=== PATIENT | female | born 1970 | race Caucasian/White ===

== ENCOUNTER 2016-04-15 04:32 | Emergency (ER) | payer OTHER ==
[~2016-04-15] VITALS: Ht 157.5 cm; Wt 54.5 kg
[2016-04-15 05:17] LABS: BASOPHILS % (AUTO) 0.1 % (0.0-2.0); EOSINOPHILS % (AUTO) 0.1 % (1.0-6.0); HEMATOCRIT 30.8 % (36-46); HEMOGLOBIN 9.9 g/dL (12.0-16.0); MEAN CORPUSCULAR HEMOGLOBIN 35.2 pg (26.0-34.0); MEAN CORPUSCULAR HGB CONC 32.3 G/dL (31.0-37.0); MEAN CORPUSCULAR VOLUME 109 fL (80-100); MONOCYTES # (AUTO) 0.3 K/uL (0.1-1.0); MONOCYTES % (AUTO) 2.9 % (2.0-9.0); NEUTROPHILS # (AUTO) 9.4 K/uL (1.8-7.7); PLATELET COUNT (AUTO) 115 K/uL (150-450); RED BLOOD CELL COUNT(AUTO) 2.83 MIL/uL (4.00-5.20); RED CELL DISTRIBUTION WIDTH 17.7 % (11.5-14.5); WHITE BLOOD COUNT (AUTO) 10.7 K/uL (4.5-11.0)
[2016-04-15 05:18] LABS: NEUTROPHILS % (AUTO) 87.9 % (40.0-70.0)
[2016-04-15 05:24] LABS: ANION GAP 20 mmol/L (8-16); CALCIUM, TOTAL 8.1 mg/dL (8.8-10.5); CARBON DIOXIDE 20 mmol/L (22-29); CHLORIDE 99 mmol/L (98-107); CREATININE 1.15 mg/dL (0.60-1.30); GLOMERULAR FILTR. RATE CALC 51 mL/min (>60); POTASSIUM 3.1 mmol/L (3.5-5.1); SODIUM SERUM 139 mmol/L (136-145); UREA NITROGEN, BLOOD 11 mg/dL (7-18)
[2016-04-15 05:28] LABS: ALANINE AMINOTRANSFERASE 39 U/L (12-78); ASPARTATE AMINOTRANSFERASE 130 U/L (15-37); BILIRUBIN,TOTAL 1.4 mg/dL (0.1-1.0); TOTAL PROTEIN, SERUM 8.1 g/dL (6.4-8.2)
[2016-04-15 05:48] LABS: RBC MORPHOLOGY COMMENT ABNORMAL RBC MORPH
[2016-04-15] MEDS ORDERED: POTASSIUM CHLORIDE 10% 40 MEQ/30 ML LIQUID UDCUP PO ONE (06:00)
[2016-04-15 06:01] VITALS: BP 140/87
== END 2016-04-15 06:10 | disposition home or self-care (01) ==
LOC: EMS 04:33
DX: F69 Unspecified disorder of adult personality and behavior (principal); E87.6 Hypokalemia; F15.10 Other stimulant abuse, uncomplicated; F17.210 Nicotine dependence, cigarettes, uncomplicated; F12.90 Cannabis use, unspecified, uncomplicated
CPT/HCPCS: 36415; 80053; 80307; 84703; 85025; 99284; G0480

== ENCOUNTER 2016-04-15 07:07 | Inpatient (IN) | payer MEDICAID, OTHER ==
[~2016-04-15] VITALS: Ht 160 cm; Wt 48.7 kg
[2016-04-15 07:41] LABS: GLUCOSE,POINT OF CARE 152 MG/DL (70-110)
[2016-04-15] MEDS ORDERED: ACETAMINOPHEN 325 MG TABLET PO ONE (07:45)
[2016-04-15 08:57] LABS: APPEARANCE,URINE CLEAR (CLEAR); GLUCOSE, URINE (UA) NEGATIVE (NEGATIVE); KETONES,URINE 15 mg/dL (NEGATIVE); LEUKOCYTE ESTERASE ,URINE NEGATIVE (NEGATIVE); OCCULT BLOOD,URINE SMALL (NEGATIVE); PROTEIN,URINE POS 1+ (NEGATIVE)
[2016-04-15 09:06] LABS: SQUAMOUS EPITHELIAL CELL,UR Few /LPF (None Seen); WBC,URINE None Seen /HPF (0-5)
[2016-04-15] MEDS ORDERED: AZITHROMYCIN 250 MG TABLET PO ONE (09:15)
[2016-04-15] MEDS: HALOPERIDOL 5 MG TABLET PO PRN (12:35)
[2016-04-15] MEDS: LORazepam 2 MG TABLET PO PRN ×2 (12:35→22:10)
[2016-04-15 16:15] VITALS: BP 146/97
[2016-04-15] MEDS ORDERED: INFLUENZA VIRUS VACCINE QVS 2016-17 (3YR+)/PF 60 MCG/0.5 ML SYRINGE IM ONE (17:15)
[2016-04-15 21:03] VITALS: BP 120/81
[2016-04-16 03:00] VITALS: BP 118/82
[2016-04-16] MEDS: ACETAMINOPHEN 325 MG TABLET PO PRN ×2 (03:07→03:34)
[2016-04-16 10:30] VITALS: BP 110/80
[2016-04-16 16:31] VITALS: BP 125/80
[2016-04-16] MEDS ORDERED: PERMETHRIN 1% 60 ML LOTION TP ONE (16:45)
[2016-04-16] MEDS: ZOLPIDEM TARTRATE 10 MG TABLET PO PRN (21:12)
[2016-04-17] MEDS: ACETAMINOPHEN 325 MG TABLET PO PRN (03:47)
[2016-04-17] MEDS: LORazepam 2 MG TABLET PO PRN ×2 (03:47→17:02)
[2016-04-17] MEDS: HALOPERIDOL 5 MG TABLET PO PRN (03:47)
[2016-04-17] MEDS ORDERED: ACETAMINOPHEN 325 MG TABLET PO PRN (05:45)
[2016-04-17] MEDS ORDERED: POTASSIUM CHLORIDE 20 MEQ ER TABLET PO ONE (05:45)
[2016-04-17] MEDS: FERROUS SULFATE 325 MG EC TABLET PO SCH ×4 (07:33→21:00)
[2016-04-17] MEDS: BENZTROPINE MESYLATE 0.5 MG TABLET PO SCH ×2 (09:47→17:02)
[2016-04-17] MEDS: HALOPERIDOL 5 MG TABLET PO SCH ×2 (09:47→17:02)
[2016-04-17 16:25] VITALS: BP 112/96
[2016-04-17] MEDS: HALOPERIDOL 10 MG TABLET PO SCH (21:00)
[2016-04-18] MEDS: ZOLPIDEM TARTRATE 10 MG TABLET PO PRN (00:43)
[2016-04-18] MEDS: LORazepam 2 MG TABLET PO PRN ×4 (00:43→19:02)
[2016-04-18] MEDS ORDERED: PNEUMOCOCCAL VACCINE POLYVALENT 0.5 ML VIAL [PPSV23] IM ONE (02:00)
[2016-04-18 06:16] VITALS: BP 129/77
[2016-04-18] MEDS: FERROUS SULFATE 325 MG EC TABLET PO SCH ×4 (07:04→20:35)
[2016-04-18 08:02] VITALS: BP 135/82
[2016-04-18] MEDS: BENZTROPINE MESYLATE 0.5 MG TABLET PO SCH ×2 (10:24→17:05)
[2016-04-18] MEDS: IBUPROFEN 400 MG TABLET PO PRN (10:24)
[2016-04-18] MEDS: HALOPERIDOL 10 MG TABLET PO SCH ×2 (10:24→17:05)
[2016-04-18] MEDS: HALOPERIDOL 5 MG TABLET PO PRN (13:32)
[2016-04-18 16:42] VITALS: BP 110/67
[2016-04-19] MEDS: FERROUS SULFATE 325 MG EC TABLET PO SCH ×4 (06:39→20:26)
[2016-04-19 08:00] VITALS: BP 112/84
[2016-04-19] MEDS: HALOPERIDOL 10 MG TABLET PO SCH ×2 (09:41→16:23)
[2016-04-19] MEDS: LORazepam 2 MG TABLET PO PRN ×2 (09:42→17:16)
[2016-04-19] MEDS: BENZTROPINE MESYLATE 0.5 MG TABLET PO SCH ×2 (09:42→16:23)
[2016-04-19] MEDS: IBUPROFEN 400 MG TABLET PO PRN (09:42)
[2016-04-19 16:00] VITALS: BP 119/88
[2016-04-20 02:10] VITALS: BP 138/79
[2016-04-20] MEDS: LORazepam 2 MG TABLET PO PRN ×3 (02:12→23:53)
[2016-04-20] MEDS: ZOLPIDEM TARTRATE 10 MG TABLET PO PRN ×2 (02:12→23:52)
[2016-04-20] MEDS: FERROUS SULFATE 325 MG EC TABLET PO SCH ×4 (06:41→20:19)
[2016-04-20 08:07] VITALS: BP 128/78
[2016-04-20] MEDS: BENZTROPINE MESYLATE 0.5 MG TABLET PO SCH ×2 (08:58→16:36)
[2016-04-20] MEDS: HALOPERIDOL 10 MG TABLET PO SCH ×2 (08:58→16:36)
[2016-04-20 16:13] VITALS: BP 146/95
[2016-04-20] MEDS ORDERED: BENZ0.5T6 PO (20:31)
[2016-04-20] MEDS ORDERED: HALO10 PO (20:34)
[2016-04-21] MEDS: FERROUS SULFATE 325 MG EC TABLET PO SCH ×2 (07:00→12:00)
[2016-04-21 08:09] VITALS: BP 123/86
[2016-04-21] MEDS: HALOPERIDOL 10 MG TABLET PO SCH (08:29)
[2016-04-21] MEDS: BENZTROPINE MESYLATE 0.5 MG TABLET PO SCH (08:30)
[2016-04-21] MEDS ORDERED: FERR-89 PO (10:22)
== END 2016-04-21 12:30 | disposition home or self-care (01) | DRG 750 ==
LOC: EMS 07:09 → B3A 14:56 → 3EC 04-17 18:10
PROVIDERS: ADMIT Psychiatry & Neurology Psychiatry; ATTEND Psychiatry & Neurology Psychiatry
PROC: 3E0234Z Introduction of Serum, Toxoid and Vaccine into Muscle, Percutaneous Approach (ICD-10-PCS; principal; 2016-04-16)
DX: F20.0 Paranoid schizophrenia (principal); Z59.0 Homelessness; F19.20 Other psychoactive substance dependence, uncomplicated; E87.6 Hypokalemia; D64.9 Anemia, unspecified; I25.10 Atherosclerotic heart disease of native coronary artery without angina pectoris; F17.210 Nicotine dependence, cigarettes, uncomplicated; Z71.51 Drug abuse counseling and surveillance of drug abuser; Z23 Encounter for immunization
CPT/HCPCS: 82962; 84132; 90471; 99285

== ENCOUNTER 2016-11-01 23:26 | Emergency (ER) | payer MEDICAID, OTHER ==
[~2016-11-01] VITALS: Ht 165.1 cm; Wt 54.0 kg
[~2016-11-01 23:26] MED LIST: BENZ0.5T6 PO; FERR-89 PO; HALO10 PO
[2016-11-02 00:30] LABS: BASOPHILS % (AUTO) 0.8 % (0.0-2.0); EOSINOPHILS % (AUTO) 6.3 % (1.0-6.0); HEMATOCRIT 30.5 % (36-46); HEMOGLOBIN 10.2 g/dL (12.0-16.0); LYMPHOCYTES % (AUTO) 28.2 % (22.0-44.0); MEAN CORPUSCULAR HEMOGLOBIN 34.1 pg (26.0-34.0); MEAN CORPUSCULAR HGB CONC 33.5 G/dL (31.0-37.0); MEAN CORPUSCULAR VOLUME 102 fL (80-100); MONOCYTES # (AUTO) 0.7 K/uL (0.1-1.0); MONOCYTES % (AUTO) 10.3 % (2.0-9.0); NEUTROPHILS # (AUTO) 3.9 K/uL (1.8-7.7); NEUTROPHILS % (AUTO) 54.4 % (40.0-70.0); PLATELET COUNT (AUTO) 190 K/uL (150-450); RED CELL DISTRIBUTION WIDTH 18.9 % (11.5-14.5); WHITE BLOOD COUNT (AUTO) 7.2 K/uL (4.5-11.0)
[2016-11-02 00:37] LABS: ANION GAP 7 mmol/L (8-16); CALCIUM, TOTAL 8.2 mg/dL (8.8-10.5); CARBON DIOXIDE 29 mmol/L (22-29); CHLORIDE 104 mmol/L (98-107); CREATININE 0.82 mg/dL (0.60-1.30); GLOMERULAR FILTR. RATE CALC > 60 mL/min (>60); POTASSIUM 3.3 mmol/L (3.5-5.1); SODIUM SERUM 140 mmol/L (136-145); UREA NITROGEN, BLOOD 11 mg/dL (7-18)
[2016-11-02 00:43] LABS: ALANINE AMINOTRANSFERASE 31 U/L (12-78); ASPARTATE AMINOTRANSFERASE 77 U/L (15-37); BILIRUBIN,TOTAL 0.3 mg/dL (0.1-1.0); TOTAL PROTEIN, SERUM 6.8 g/dL (6.4-8.2)
[2016-11-02 01:21] LABS: RBC MORPHOLOGY COMMENT ABNORMAL RBC MORPH
[2016-11-02] MEDS ORDERED: POTASSIUM CHLORIDE 10% 40 MEQ/30 ML LIQUID UDCUP PO ONE (03:00)
[2016-11-02] MEDS ORDERED: MAG HYDROX/AL HYDROX/SIMETH ES 30 ML SUSPENSION UDCUP PO ONE (03:00)
[2016-11-02 03:38] VITALS: BP 133/87
== END 2016-11-02 03:42 | disposition home or self-care (01) ==
LOC: EMS 23:27
DX: K70.30 Alcoholic cirrhosis of liver without ascites (principal); E87.6 Hypokalemia; K86.1 Other chronic pancreatitis; F10.229 Alcohol dependence with intoxication, unspecified; I25.10 Atherosclerotic heart disease of native coronary artery without angina pectoris; F17.210 Nicotine dependence, cigarettes, uncomplicated; F12.90 Cannabis use, unspecified, uncomplicated; Y90.3 Blood alcohol level of 60-79 mg/100 ml
CPT/HCPCS: 36415; 80053; 84703; 85025; 99284; G0480

== ENCOUNTER 2018-09-23 16:35 | Inpatient (IN) | payer OTHER ==
[~2018-09-23] VITALS: Ht 160 cm; Wt 54.7 kg
[2018-09-23] MEDS ORDERED: OMEP20 PO (17:05)
[2018-09-23] MEDS ORDERED: PERID15L MM (17:05)
[2018-09-23] MEDS ORDERED: DIPH50 PO (17:05)
[2018-09-23] MEDS ORDERED: OLAN5TAB2 PO (17:05)
[2018-09-23] MEDS ORDERED: ACET-2247 PO (17:05)
[2018-09-23] MEDS ORDERED: METF-960 PO (17:05)
[2018-09-23] MEDS ORDERED: SERT50TA12 PO (17:05)
[2018-09-23] MEDS ORDERED: ATOR20TA86 PO (17:05)
[2018-09-23] MEDS ORDERED: NALT50TA6 PO (17:05)
[2018-09-23 17:16] LABS: GLUCOSE,POINT OF CARE 145 MG/DL (70-110)
[2018-09-23] MEDS ORDERED: SODIUM CHLORIDE 0.9% 1,000 ML IV ONE (18:45)
[2018-09-23 19:03] LABS: BASOPHILS % (AUTO) 1.3 % (0.0-2.0); EOSINOPHILS % (AUTO) 4.3 % (1.0-6.0); HEMOGLOBIN 7.7 g/dL (12.0-16.0); LYMPHOCYTES # (AUTO) 1.3 K/uL (1.0-4.8); LYMPHOCYTES % (AUTO) 18.9 % (22.0-44.0); MEAN CORPUSCULAR HEMOGLOBIN 29.5 pg (26.0-34.0); MEAN CORPUSCULAR HGB CONC 32.1 G/dL (31.0-37.0); MEAN CORPUSCULAR VOLUME 92 fL (80-100); MONOCYTES # (AUTO) 0.3 K/uL (0.1-1.0); MONOCYTES % (AUTO) 4.8 % (2.0-9.0); NEUTROPHILS % (AUTO) 70.7 % (40.0-70.0); PLATELET COUNT (AUTO) 242 K/uL (150-450); RED BLOOD CELL COUNT(AUTO) 2.61 MIL/uL (4.00-5.20); RED CELL DISTRIBUTION WIDTH 17.5 % (11.5-14.5)
[2018-09-23] MEDS ORDERED: ONDANSETRON HCL 4 MG/2 ML VIAL IVP ONE (19:15)
[2018-09-23 19:16] LABS: CALCIUM, TOTAL 9.4 mg/dL (8.8-10.5); CREATININE 1.2 mg/dL (0.60-1.30); POTASSIUM 4.1 mmol/L (3.5-5.1)
[2018-09-23] MEDS: ACETAMINOPHEN 500 MG TABLET PO ONE ×2 (19:21→19:37)
[2018-09-23 19:29] LABS: ALBUMIN 3.4 g/dL (3.4-5.0); BILIRUBIN,TOTAL 0.2 mg/dL (0.1-1.0); TOTAL PROTEIN, SERUM 7.3 g/dL (6.4-8.2)
[2018-09-23 19:42] LABS: INR 0.9 (0.9-1.1); PROTHROMBIN TIME 9.5 SEC (9.4-11.6)
[2018-09-23 19:45] LABS: AMPHET/METH SCREEN,URINE POSITIVE (NEGATIVE); BARBITURATE SCREEN, URINE NEGATIVE (NEGATIVE); BENZODIAZEPINES SCREEN,URINE NEGATIVE (NEGATIVE); CANNABINOID SCREEN,URINE POSITIVE (NEGATIVE); COCAINE SCREEN,URINE NEGATIVE (NEGATIVE); METHADONE SCREEN, URINE NEGATIVE (NEGATIVE); OPIATE SCREEN,URINE POSITIVE (NEGATIVE)
[2018-09-23 19:50] LABS: APPEARANCE,URINE CLEAR (CLEAR); BILIRUBIN,URINE NEGATIVE (NEGATIVE); GLUCOSE, URINE (UA) NEGATIVE (NEGATIVE); KETONES,URINE NEGATIVE (NEGATIVE); LEUKOCYTE ESTERASE ,URINE NEGATIVE (NEGATIVE); NITRATE,URINE NEGATIVE (NEGATIVE); OCCULT BLOOD,URINE TRACE (NEGATIVE); PHENCYCLIDINE SCREEN,URINE NEGATIVE (NEGATIVE); PROTEIN,URINE NEGATIVE (NEGATIVE); UROBILINOGEN,URINE 0.2 mg/dL (<=1.0)
[2018-09-23 20:02] LABS: BACTERIA,URINE None Seen /HPF (None Seen); RBC,URINE 0-2 /HPF (0-2); SQUAMOUS EPITHELIAL CELL,UR Few /LPF (None Seen); WBC,URINE 0-2 /HPF (0-5)
[2018-09-23] MEDS ORDERED: PANTOPRAZOLE SODIUM 80 MG in SODIUM CHLORIDE 0.9% 100 ML IV SCH (20:30)
[2018-09-23] MEDS ORDERED: MORPHINE SULFATE 2 MG/ML SYRINGE IVP ONE (20:30)
[2018-09-23] MEDS ORDERED: PANTOPRAZOLE SODIUM 40 MG/VIAL IVP ONE (20:30)
[2018-09-23] MEDS ORDERED: PEG 3350/NA SULF,BICARB,CL/KCL 4000 ML SOLUTION PO ONE (20:45)
[2018-09-23] MEDS ORDERED: ACETAMINOPHEN 325 MG TABLET PO PRN ×2 (21:15→22:00)
[2018-09-23] MEDS ORDERED: ONDANSETRON HCL 4 MG/2 ML VIAL IVP PRN (21:15)
[2018-09-23] MEDS ORDERED: LORazepam 2 MG/ML VIAL IVP ONE (21:30)
[2018-09-23] MEDS ORDERED: LORazepam 2 MG/ML VIAL IVP PRN (22:00)
[2018-09-23] MEDS ORDERED: POTASSIUM CHL 10 MEQ/WATER 50 ML IV PRN (22:00)
[2018-09-23] MEDS ORDERED: MAGNESIUM OXIDE 400 MG TABLET PO PRN (22:00)
[2018-09-23] MEDS ORDERED: MAGNESIUM SULFATE 4 GM/WATER 100 ML IV PRN (22:00)
[2018-09-23] MEDS ORDERED: MAGNESIUM SULFATE 2 GM/WATER 50 ML IV PRN (22:00)
[2018-09-23] MEDS ORDERED: POTASSIUM CHLORIDE 20 MEQ ER TABLET PO PRN (22:00)
[2018-09-23] MEDS ORDERED: DEXTROSE 50%-WATER 25 GM/50 ML SYRINGE IVP PRN (22:00)
[2018-09-23] MEDS: DEXTROSE 5%-0.45% SODIUM CHL 1,000 ML IV ONE ×2 (22:27→22:38)
[2018-09-23 23:15] VITALS: BP 111/72
[2018-09-24] VITALS (14 sets, daily range): BP systolic 95–154; BP diastolic 54–88
[2018-09-24] MEDS ORDERED: SODIUM CHLORIDE 0.9% 500 ML IV ONE (00:52)
[2018-09-24] MEDS ORDERED: PANTOPRAZOLE SODIUM 80 MG in SODIUM CHLORIDE 0.9% 100 ML IV SCH (08:00)
[2018-09-24] MEDS ORDERED: EPINEPHrine 1:10,000 [1 MG/10 ML] SYRINGE ONE (08:03)
[2018-09-24] MEDS ORDERED: SODIUM CHLORIDE 0.9% 1,000 ML IV ONE (08:03)
[2018-09-24] MEDS: MULTIVITAMINS WITH MINERALS, THERAPEUTIC TABLET PO SCH (10:10)
[2018-09-24 10:20] LABS: GLUCOMETER DEV NAME(LOC) 5S.1; GLUCOSE,POINT OF CARE 83 MG/DL (70-110)
[2018-09-24 11:36] LABS: GLUCOMETER DEV NAME(LOC) 5N.1; GLUCOSE,POINT OF CARE 127 MG/DL (70-110)
[2018-09-24 11:46] LABS: GLUCOMETER DEV NAME(LOC) 5N.2; GLUCOSE,POINT OF CARE 143 MG/DL (70-110)
[2018-09-24] MEDS ORDERED: PROPOFOL 1% 20 ML VIAL IVP ONE (12:00)
[2018-09-24] MEDS ORDERED: LIDOCAINE/PF 2% 5 ML VIAL INJ ONE (12:00)
[2018-09-24] MEDS: INSULIN LISPRO 100 UNITS/ML SQ PRN ×2 (12:12→21:07)
[2018-09-24 12:25] LABS: BASOPHILS % (AUTO) 0.9 % (0.0-2.0); EOSINOPHILS % (AUTO) 5.3 % (1.0-6.0); HEMATOCRIT 26.3 % (36-46); HEMOGLOBIN 8.4 g/dL (12.0-16.0); LYMPHOCYTES # (AUTO) 1.3 K/uL (1.0-4.8); LYMPHOCYTES % (AUTO) 27.8 % (22.0-44.0); MEAN CORPUSCULAR HEMOGLOBIN 28.3 pg (26.0-34.0); MEAN CORPUSCULAR HGB CONC 31.9 G/dL (31.0-37.0); MEAN CORPUSCULAR VOLUME 89 fL (80-100); MONOCYTES # (AUTO) 0.4 K/uL (0.1-1.0); MONOCYTES % (AUTO) 7.7 % (2.0-9.0); NEUTROPHILS # (AUTO) 2.8 K/uL (1.8-7.7); NEUTROPHILS % (AUTO) 58.3 % (40.0-70.0); PLATELET COUNT (AUTO) 217 K/uL (150-450); RED BLOOD CELL COUNT(AUTO) 2.96 MIL/uL (4.00-5.20); RED CELL DISTRIBUTION WIDTH 20.7 % (11.5-14.5)
[2018-09-24] MEDS ORDERED: MAGNESIUM SULFATE 4 GM/WATER 100 ML IV ONE (15:30)
[2018-09-24] MEDS ORDERED: SODIUM CHLORIDE 0.9% 100 ML ONE (16:50)
[2018-09-24 17:21] LABS: GLUCOMETER DEV NAME(LOC) 5S.1; GLUCOSE,POINT OF CARE 114 MG/DL (70-110)
[2018-09-25 00:34] VITALS: BP 133/74
[2018-09-25 03:40] LABS: GLUCOMETER DEV NAME(LOC) 5N.1; GLUCOSE,POINT OF CARE 146 MG/DL (70-110)
[2018-09-25 04:50] VITALS: BP 110/72
[2018-09-25] MEDS: INSULIN LISPRO 100 UNITS/ML SQ PRN ×2 (06:12→11:50)
[2018-09-25 07:05] LABS: BASOPHILS % (AUTO) 0.6 % (0.0-2.0); EOSINOPHILS % (AUTO) 9.3 % (1.0-6.0); HEMATOCRIT 25.8 % (36-46); HEMOGLOBIN 8.4 g/dL (12.0-16.0); LYMPHOCYTES # (AUTO) 1.3 K/uL (1.0-4.8); LYMPHOCYTES % (AUTO) 31.3 % (22.0-44.0); MEAN CORPUSCULAR HEMOGLOBIN 29.1 pg (26.0-34.0); MEAN CORPUSCULAR HGB CONC 32.6 G/dL (31.0-37.0); MEAN CORPUSCULAR VOLUME 89 fL (80-100); MONOCYTES # (AUTO) 0.5 K/uL (0.1-1.0); NEUTROPHILS # (AUTO) 1.9 K/uL (1.8-7.7); NEUTROPHILS % (AUTO) 46.8 % (40.0-70.0); PLATELET COUNT (AUTO) 206 K/uL (150-450); RED BLOOD CELL COUNT(AUTO) 2.89 MIL/uL (4.00-5.20); RED CELL DISTRIBUTION WIDTH 20.6 % (11.5-14.5)
[2018-09-25 07:19] LABS: ANION GAP 7 mmol/L (8-16); CALCIUM, TOTAL 8.9 mg/dL (8.8-10.5); CARBON DIOXIDE 23 mmol/L (22-29); CHLORIDE 107 mmol/L (98-107); CREATININE 0.74 mg/dL (0.60-1.30); GLOMERULAR FILTR. RATE CALC > 60 mL/min (>60); GLUCOSE,RANDOM 95 mg/dL (70-110); POTASSIUM 4.8 mmol/L (3.5-5.1); SODIUM SERUM 137 mmol/L (136-145); UREA NITROGEN, BLOOD 6 mg/dL (7-18)
[2018-09-25 07:55] VITALS: BP 139/83
[2018-09-25] MEDS: MULTIVITAMINS WITH MINERALS, THERAPEUTIC TABLET PO SCH (08:28)
[2018-09-25] MEDS ORDERED: OMEP20 PO (12:02)
[2018-09-25] MEDS ORDERED: MULT-248 PO (12:02)
[2018-09-25] MEDS ORDERED: MAGOX PO (12:03)
[2018-09-25 15:16] LABS: GLUCOMETER DEV NAME(LOC) 5N.1; GLUCOSE,POINT OF CARE 99 MG/DL (70-110)
[2018-09-25 15:16] LABS: GLUCOMETER DEV NAME(LOC) 5N.1; GLUCOSE,POINT OF CARE 156 MG/DL (70-110)
== END 2018-09-25 16:25 | disposition home or self-care (01) | DRG 244 ==
LOC: EMS 16:36 → 5S 21:36
PROVIDERS: ADMIT Internal Medicine; ATTEND Internal Medicine
PROC: 0DJD8ZZ Inspection of Lower Intestinal Tract, Via Natural or Artificial Opening Endoscopic (ICD-10-PCS; 2018-09-24)
PROC: 30233N1 Transfusion of Nonautologous Red Blood Cells into Peripheral Vein, Percutaneous Approach (ICD-10-PCS; 2018-09-24)
PROC: 0DB68ZX Excision of Stomach, Via Natural or Artificial Opening Endoscopic, Diagnostic (ICD-10-PCS; principal; 2018-09-24 08:45)
DX: K57.31 Diverticulosis of large intestine without perforation or abscess with bleeding (principal); E43 Unspecified severe protein-calorie malnutrition; D64.9 Anemia, unspecified; E11.9 Type 2 diabetes mellitus without complications; I10 Essential (primary) hypertension; F19.10 Other psychoactive substance abuse, uncomplicated; I25.10 Atherosclerotic heart disease of native coronary artery without angina pectoris; K64.8 Other hemorrhoids; K63.5 Polyp of colon; J44.9 Chronic obstructive pulmonary disease, unspecified; Z91.19 Patient's noncompliance with other medical treatment and regimen; Z68.21 Body mass index [BMI] 21.0-21.9, adult
CPT/HCPCS: 83735; 86850; 86900; 86901; 86920; 88305; 88312; 88313; 93005; C9113; G0378; G0480; J0171; J2060; J2270; J2405; J2704; J3475; J3490; J7030; J7040; J7050; P9016